=== PATIENT | female | born 1990 | race African-American/Black ===

== ENCOUNTER 2018-08-18 13:16 | Inpatient (IN) ==
[2018-08-18] MEDS ORDERED: Oxytocin 30 Units/500ml Premix 30 UNITS/500 ML BAG IV.SIG ONE (14:31)
[2018-08-18] MEDS ORDERED: Sod Chloride 0.9% Inj 1,000 ML IV.CONT PRN (14:31)
[2018-08-18] MEDS ORDERED: fentaNYL Citrate Inj 100 MCG/2 ML Ampul IV.PUSH PRN ×2 (14:31)
[2018-08-18] MEDS ORDERED: Sodium Chlor 0.9% Inj 500 ML IV.SIG PRN (14:31)
[2018-08-18] MEDS ORDERED: Naloxone Inj 0.4 MG/ML Vial IV.PUSH PRN (14:31)
--- NOTE | 2018-08-18 14:43 | P.HPOB ---
History of Present Illness Service: OBstetrics Primary Care Physician: No Primary Care Physician Chief Complaint: 37 week IUP with mild BP elevations, NATALEE < 5 History of Present Illness: 28 yo sbf with LMP unclear and EDC 11/12 by 34+ week sonogram seen today for second visit. Late entrant originally through the care home and now at [facility]. Drugs of choice were cocaine and THC. Used through mid June when incarcerated. In abstinence now. Feels well and wants to remain abstinent. No severe headaches, nausea, vomiting, blurred vision or RUQT. BP initially 140 /90 at 34 weeks and 130/82 today. 1+ protein in urine. Sonogram today shows NATALEE 4.8 . Grade 3 placenta. Cervix long/closed/posterior and soft. GFM no leaking, bleeding or regular UCs. Weeks Gestation:: 37 Para: 1 : 2 - Inpatient Certification I certify that the inpatient services were ordered in accordance with Medicare regulations governing the order. This includes certification that hospital inpatient services are reasonable and necessary and in the case of services not specified as inpatient-only under 42 CFR 419.22(n), that they are appropriately provided as inpatient services in accordance to with the 2-midnight benchmark under 43 CFR 412.3(e) Estimated Total Length of Stay (Days): 3 Plans for Post Hospital Care: Other Review of Systems All other systems reviewed negative except as stated in HPI PMFSH - Tobacco History Second Hand Smoke Exposure: Yes Tobacco Use In Past 30 Days: No Medications and Allergies Allergies Allergy/AdvReac Type Severity Reaction Status Date / Time No Known Drug Allergies Allergy Unknown none Verified 08/18/18 14:20 Home Medications Medication Instructions Recorded Confirmed Type vit,[id number] 1 tab PO DAILY 08/18/18 08/18/18 History [Prenatabs FA] Exam Vital signs: Vital Signs 08/18/18 14:05 Temperature 98.6 F Intake & Output 08/17/18 08/18/18 08/18/18 18:59 06:59 18:59 Weight 69.4 kg - Constitutional no acute distress - Routine HEENT Exam Head: Present: normocephalic Eye: Present: PERRL ENT: Present: mucous membranes moist - Routine Neck Exam Present: supple - Routine Respiratory Exam Present: CTA bilaterally - Routine Cardiovascular Exam Present: RRR - Routine Abdominal Exam Present: soft - Routine Extremities Exam Present: pulses intact - Routine Skin Exam Present: intact - Routine Neurological Exam Present: alert, oriented X3 Caprini VTE Risk Assessment Caprini VTE Risk Assessment: No/Low Risk (score <= 1) Caprini Risk Assessment Model: Point Value = 1 Point Value = 2 Point Value = 3 Point Value = 5 Age 41-60 Minor surgery BMI > 25 kg/m2 Swollen legs Varicose veins or History of unexplained or recurrent spontaneous Oral contraceptives or hormone replacement Sepsis (< 1 month) Serious lung disease, including pneumonia (< 1 month) Abnormal pulmonary function Acute myocardial infarction Congestive heart failure (< 1 month) History of inflammatory bowel disease Medical patient at bed rest Age 61-74 Arthroscopic surgery Major open surgery (> 45 min) Laparoscopic surgery (> 45 min) Malignancy Confined to bed (> 72 hours) Immobilizing plaster cast Central venous access Age >= 75 History of VTE Family history of VTE Factor V Leiden Prothrombin [id number] Lupus anticoagulant Anticardiolipin antibodies Elevated serum homocysteine Heparin-induced thrombocytopenia Other congenital or acquired thrombophilia Stroke (< 1 month) Elective arthroplasty Hip, pelvis, or leg fracture Acute spinal cord injury (< 1 month) Prophylaxis Regimen: Total Risk Factor Score Risk Level Prophylaxis Regimen 0-1 Low Early ambulation 2 Moderate Order ONE of the following: *Sequential Compression Device (SCD) *Heparin 5000 units SQ BID 3-4 Higher Order ONE of the following medications: *Heparin 5000 units SQ TID *Enoxaparin/Lovenox 40 mg SQ daily (WT < 150 kg, CrCl > 30 mL/min) *Enoxaparin/Lovenox 30 mg SQ daily (WT < 150 kg, CrCl > 10-29 mL/min) *Enoxaparin/Lovenox 30 mg SQ BID (WT < 150 kg, CrCl > 30 mL/min) AND/OR *Sequential Compression Device (SCD) 5 or more Highest Order ONE of the following medications: *Heparin 5000 units SQ TID (Preferred with Epidurals) *Enoxaparin/Lovenox 40 mg SQ daily (WT < 150 kg, CrCl > 30 mL/min) *Enoxaparin/Lovenox 30 mg SQ daily (WT < 150 kg, CrCl > 10-29 mL/min) *Enoxaparin/Lovenox 30 mg SQ BID (WT < 150 kg, CrCl > 30 mL/min) AND *Sequential Compression Device (SCD) Assessment and Plan - Diagnosis (1) Late care Code(s): O09.30 - Supervision of with insufficient care, unspecified trimester Status: Acute (2) 37 weeks gestation of Code(s): Z3A.37 - 37 weeks gestation of Status: Acute (3) induced hypertension Code(s): O13.9 - Gestational [-induced] hypertension without significant proteinuria, unspecified trimester Status: Acute (4) Oligohydramnios Code(s): O41.00X0 - Oligohydramnios, unspecified trimester, not applicable or unspecified Status: Acute (5) Polysubstance (excluding opioids) dependence, daily use Code(s): F19.20 - Other psychoactive substance dependence, uncomplicated Status: Acute - Plan To [place] for cervical ripening with cervidil and anticipated delivery mckenzie score 3 but multip anticipate
[2018-08-18] MEDS ORDERED: Citric Acid/Sodium Citrate Liq 30 ML UDC PO SCH (14:45)
[2018-08-18 15:18] LABS: Baso % (Auto) 0.3 % (0.0-2.0); Eos % (Auto) 0.3 % (0.0-4.0); Hematocrit 32.1 % (35.0-46.0); Hemoglobin 10.6 gm/dL (11.6-15.3); Lymph # (Auto) 1.7 th/mm3 (1.0-4.8); Lymph % (Auto) 15.4 % (9.0-44.0); Mean Corpuscular Hemoglobin 24.7 pg (27.0-34.0); Mean Corpuscular Volume 74.7 fL (80.0-100.0); Mono # (Auto) 1.1 th/mm3 (0.0-0.9); Mono % (Auto) 10.1 % (0.0-8.0); Neut # (Auto) 8.4 th/mm3 (1.8-7.7); Neut % (Auto) 73.9 % (16.0-70.0); Platelet Count 131 th/mm3 (150-450); Red Blood Count 4.29 mil/mm3 (4.00-5.30); Red Cell Distribution Width 16.2 % (11.6-17.2); White Blood Count 11.3 th/mm3 (4.0-11.0)
[2018-08-18 15:24] LABS: Bacteria,Urine Moderate /hpf; Bilirubin,Urine Negative (Negative); Clarity,Urine Cloudy (Clear); Color,Urine Yellow (Yellw/Straw); Glucose,Urine (UA) Negative (Negative); Leukocyte Esterase,Urine Large (Negative); Nitrite,Urine Negative (Negative); Specific Gravity,Urine 1.009 (1.002-1.035); Squamous Epithelial Cell,Urine 22 /hpf (0-5)
[2018-08-18 15:25] LABS: Amphetamine Urine With Conf Neg (Neg); Benzodiazepine Urine With Conf Neg (Neg)
[2018-08-18] MEDS ORDERED: Oxytocin 30 Units/500ml Premix 30 UNITS/500 ML BAG IV.SIG PRN (18:34)
--- NOTE | 2018-08-18 18:34 | P.OBLABOR ---
Subjective Interval history: Eating dinner with BERNABE Dennis noting some mild contractions with cervidil in place no leaking or bleeding Objective Vital Signs: Vital Signs - 8 hr 08/18/18 14:05 08/18/18 14:15 Temperature 98.6 F Pulse Rate 90 Respiratory Rate 16 Blood Pressure 127/86 Objective: category one strip 1 c, /20%/soft and posterior Patient Started Active Labor: No Medical Induction of Labor: Yes Medical Induction Start Date: 08/18/18 Artificial Rupture of Membrane: No Assessment and Plan - Diagnosis (1) Late care Code(s): O09.30 - Supervision of with insufficient care, unspecified trimester Status: Acute (2) 37 weeks gestation of Code(s): Z3A.37 - 37 weeks gestation of Status: Acute (3) induced hypertension Code(s): O13.9 - Gestational [-induced] hypertension without significant proteinuria, unspecified trimester Status: Acute (4) Oligohydramnios Code(s): O41.00X0 - Oligohydramnios, unspecified trimester, not applicable or unspecified Status: Acute (5) Polysubstance (excluding opioids) dependence, daily use Code(s): F19.20 - Other psychoactive substance dependence, uncomplicated Status: Acute - Plan To [place] for cervical ripening with cervidil and anticipated delivery mckenzie score 3 but multip anticipate 08/18/18 6:30 pm doing well will start pitocin at 6 am arom if possible at 8:00 am anticipate
[2018-08-18 21:33] LABS: Hepatitis A IgM Antibody Nonreactive (Nonreactive); Hepatitits B Surface Antigen Nonreactive (Nonreactive)
[2018-08-19] MEDS ORDERED: Penicillin G Potassium Inj 5,000,000 UNIT in Sodium Chloride 0.9% Inj 100 ML IV.SIG SCH ×4 (06:00)
[2018-08-19] MEDS ORDERED: Penicillin G Potassium Inj 2,500,000 UNIT in Sodium Chlor 0.9% Inj 100 ML IV.SIG SCH (06:00)
[2018-08-19] MEDS: Oxytocin 30 Units/500ml Premix 30 UNITS/500 ML BAG IV.SIG PRN (07:26)
[2018-08-19] MEDS: Penicillin G Potassium Inj 2,500,000 UNIT in Sodium Chlor 0.9% Inj 100 ML IV.SIG SCH ×4 (09:52→23:01)
--- NOTE | 2018-08-19 10:32 | P.OBLABOR ---
Subjective Interval history: Quiet night mild contractions good movement no leaking or bleeding yet Objective Vital Signs: Vital Signs - 8 hr 08/19/18 06:30 08/19/18 06:56 08/19/18 07:24 Temperature 98.5 F 98.8 F Pulse Rate 84 73 81 Respiratory Rate 18 Blood Pressure 122/66 112/70 143/73 H 08/19/18 07:30 08/19/18 08:32 08/19/18 09:01 Temperature Pulse Rate 111 H 100 H Respiratory Rate 16 Blood Pressure 142/70 H 135/94 H 08/19/18 09:45 08/19/18 10:21 Temperature Pulse Rate 85 86 Respiratory Rate 16 18 Blood Pressure 127/76 133/70 Objective: 3 cm/60%/-2 arom scant to no flluid strip category one on 4 mu pitocin Weeks Gestation: 37 Patient Started Active Labor: No Medical Induction of Labor: Yes Medical Induction Start Date: 08/19/18 Artificial Rupture of Membrane: Yes Artificial ROM Date: 08/19/18 Artificial ROM Time: 10:30 Assessment and Plan - Diagnosis (1) Late care Code(s): O09.30 - Supervision of with insufficient care, unspecified trimester Status: Acute (2) 37 weeks gestation of Code(s): Z3A.37 - 37 weeks gestation of Status: Acute Plan: Anticipate epidural as needed (3) induced hypertension Code(s): O13.9 - Gestational [-induced] hypertension without significant proteinuria, unspecified trimester Status: Acute (4) Oligohydramnios Code(s): O41.00X0 - Oligohydramnios, unspecified trimester, not applicable or unspecified Status: Acute (5) Polysubstance (excluding opioids) dependence, daily use Code(s): F19.20 - Other psychoactive substance dependence, uncomplicated Status: Acute - Plan To [place] for cervical ripening with cervidil and anticipated delivery mckenzie score 3 but multip anticipate 08/18/18 6:30 pm doing well will start pitocin at 6 am arom if possible at 8:00 am anticipate
[2018-08-19] MEDS: Prenatal Vit/Ca/Iron/Folic Acid Tablet PO SCH (14:50)
--- NOTE | 2018-08-19 17:53 | P.OBLABOR ---
Subjective Interval history: not feeling any contractions despite pitocin at 17 mU/min and use of birthing ball. GFM noted no leaking despite aggressive attempt to AROM this am. Mild bloody show only Objective Vital Signs: Vital Signs - 8 hr 08/19/18 10:21 08/19/18 10:30 08/19/18 10:50 Temperature 98.6 F Pulse Rate 86 91 H Respiratory Rate 18 Blood Pressure 133/70 121/71 08/19/18 11:21 08/19/18 12:00 08/19/18 13:55 Temperature 98.6 F 98.7 F Pulse Rate 95 H 89 97 H Respiratory Rate 18 14 Blood Pressure 120/63 109/58 L 126/77 08/19/18 13:58 08/19/18 14:35 08/19/18 15:07 Temperature Pulse Rate 103 H 95 H Respiratory Rate 16 16 Blood Pressure 140/74 134/79 08/19/18 15:28 08/19/18 15:52 08/19/18 16:00 Temperature 98.7 F 98.7 F Pulse Rate 96 H Respiratory Rate 16 Blood Pressure 119/71 08/19/18 16:22 08/19/18 16:52 Temperature Pulse Rate 95 H 93 H Respiratory Rate Blood Pressure 116/81 122/86 Objective: 5+/60% and not well applied. Anterior and high strip category one Patient Started Active Labor: No Medical Induction of Labor: Yes Artificial Rupture of Membrane: Yes Assessment and Plan - Diagnosis (1) Late care Code(s): O09.30 - Supervision of with insufficient care, unspecified trimester Status: Acute (2) 37 weeks gestation of Code(s): Z3A.37 - 37 weeks gestation of Status: Acute Plan: Anticipate epidural as needed (3) induced hypertension Code(s): O13.9 - Gestational [-induced] hypertension without significant proteinuria, unspecified trimester Status: Acute (4) Oligohydramnios Code(s): O41.00X0 - Oligohydramnios, unspecified trimester, not applicable or unspecified Status: Acute (5) Polysubstance (excluding opioids) dependence, daily use Code(s): F19.20 - Other psychoactive substance dependence, uncomplicated Status: Acute - Plan To [place] for cervical ripening with cervidil and anticipated delivery mckenzie score 3 but multip anticipate 08/18/18 6:30 pm doing well will start pitocin at 6 am arom if possible at 8:00 am anticipate 08/18/18 attempt to AROM this morning did not reveal gush of any fluid (oligohydramnios in office) only mild change today on pitocin attempt to again use amnio hook to get fluid did not show any fluid Will stop pitocin. Allow dinner, shower and walk around the resume monitoring and pitocin. FSE when epidural anticipate
[2018-08-19] MEDS ORDERED: Oxytocin 30 Units/500ml Premix 30 UNITS/500 ML BAG IV.SIG PRN (20:25)
[2018-08-20] MEDS: Penicillin G Potassium Inj 2,500,000 UNIT in Sodium Chlor 0.9% Inj 100 ML IV.SIG SCH ×5 (03:42→22:27)
--- NOTE | 2018-08-20 08:17 | P.OBLABOR ---
Subjective Interval history: quiet night but noting leaking being very patient and pleasant gfm no real contractions Objective Vital Signs: Vital Signs - 8 hr 08/20/18 01:20 08/20/18 03:13 08/20/18 06:06 Temperature 97.3 F L 98.9 F 97.8 F Pulse Rate 81 76 72 Respiratory Rate 18 18 16 Blood Pressure 113/60 109/74 130/74 08/20/18 07:28 08/20/18 07:30 Temperature 98.0 F Pulse Rate 74 Respiratory Rate 18 Blood Pressure 129/74 Objective: Pelvic Exam: Category one strip minimal UCs cervix now rotated anterior and thinner but still 50% 4-5 cm still feel tight amniotic sac efw 7 pounds proven Patient Started Active Labor: No Medical Induction of Labor: Yes Artificial Rupture of Membrane: Yes Assessment and Plan - Diagnosis (1) Late care Code(s): O09.30 - Supervision of with insufficient care, unspecified trimester Status: Acute (2) 37 weeks gestation of Code(s): Z3A.37 - 37 weeks gestation of Status: Acute Plan: Anticipate epidural as needed (3) induced hypertension Code(s): O13.9 - Gestational [-induced] hypertension without significant proteinuria, unspecified trimester Status: Acute (4) Oligohydramnios Code(s): O41.00X0 - Oligohydramnios, unspecified trimester, not applicable or unspecified Status: Acute (5) Polysubstance (excluding opioids) dependence, daily use Code(s): F19.20 - Other psychoactive substance dependence, uncomplicated Status: Acute - Plan To [place] for cervical ripening with cervidil and anticipated delivery mckenzie score 3 but multip anticipate 08/18/18 6:30 pm doing well will start pitocin at 6 am arom if possible at 8:00 am anticipate 08/18/18 attempt to AROM this morning did not reveal gush of any fluid (oligohydramnios in office) only mild change today on pitocin attempt to again use amnio hook to get fluid did not show any fluid Will stop pitocin. Allow dinner, shower and walk around the resume monitoring and pitocin. FSE when epidural anticipate 08/20/18 anticipate delivery today
--- NOTE | 2018-08-20 10:35 | P.OBLABOR ---
Subjective Interval history: still too comfortable despite 12 mu/min pitocin gfm notes leakage Objective Vital Signs: Vital Signs - 8 hr 08/20/18 03:13 08/20/18 06:06 08/20/18 07:28 Temperature 98.9 F 97.8 F 98.0 F Pulse Rate 76 72 74 Respiratory Rate 18 16 Blood Pressure 109/74 130/74 129/74 08/20/18 07:30 08/20/18 09:00 08/20/18 09:58 Temperature 98.4 F Pulse Rate 90 Respiratory Rate 18 20 18 Blood Pressure 119/68 08/20/18 09:59 Temperature Pulse Rate 88 Respiratory Rate Blood Pressure 119/61 Objective: Pelvic Exam: 5 cm/50/-2 more anterior strip reactive not adequate labor yet Assessment and Plan - Diagnosis (1) Late care Code(s): O09.30 - Supervision of with insufficient care, unspecified trimester Status: Acute (2) 37 weeks gestation of Code(s): Z3A.37 - 37 weeks gestation of Status: Acute Plan: Anticipate epidural as needed (3) induced hypertension Code(s): O13.9 - Gestational [-induced] hypertension without significant proteinuria, unspecified trimester Status: Acute (4) Oligohydramnios Code(s): O41.00X0 - Oligohydramnios, unspecified trimester, not applicable or unspecified Status: Acute (5) Polysubstance (excluding opioids) dependence, daily use Code(s): F19.20 - Other psychoactive substance dependence, uncomplicated Status: Acute - Plan To [place] for cervical ripening with cervidil and anticipated delivery mckenzie score 3 but multip anticipate 08/18/18 6:30 pm doing well will start pitocin at 6 am arom if possible at 8:00 am anticipate 08/18/18 attempt to AROM this morning did not reveal gush of any fluid (oligohydramnios in office) only mild change today on pitocin attempt to again use amnio hook to get fluid did not show any fluid Will stop pitocin. Allow dinner, shower and walk around the resume monitoring and pitocin. FSE when epidural anticipate 08/20/18 anticipate delivery today
[2018-08-20] MEDS: Prenatal Vit/Ca/Iron/Folic Acid Tablet PO SCH (11:04)
--- NOTE | 2018-08-20 17:21 | P.OBLABOR ---
Subjective Interval history: no complaints no symptoms of infection timbo e contractions when sitting up Objective Vital Signs: Vital Signs - 8 hr 08/20/18 09:58 08/20/18 09:59 08/20/18 11:15 Temperature 98.7 F Pulse Rate 88 74 Respiratory Rate 18 20 Blood Pressure 119/61 131/77 08/20/18 12:42 08/20/18 14:00 08/20/18 15:00 Temperature 97.9 F 97.9 F 98.2 F Pulse Rate 87 71 77 Respiratory Rate 18 16 18 Blood Pressure 129/61 125/62 128/64 08/20/18 17:04 08/20/18 17:05 Temperature 97.7 F Pulse Rate 84 Respiratory Rate 20 Blood Pressure 126/74 Objective: 6 cm/-3/50% strip category one Patient Started Active Labor: Yes Medical Induction of Labor: Yes Artificial Rupture of Membrane: Yes Assessment and Plan - Diagnosis (1) Late care Code(s): O09.30 - Supervision of with insufficient care, unspecified trimester Status: Acute (2) 37 weeks gestation of Code(s): Z3A.37 - 37 weeks gestation of Status: Acute Plan: Anticipate epidural as needed (3) induced hypertension Code(s): O13.9 - Gestational [-induced] hypertension without significant proteinuria, unspecified trimester Status: Acute (4) Oligohydramnios Code(s): O41.00X0 - Oligohydramnios, unspecified trimester, not applicable or unspecified Status: Acute (5) Polysubstance (excluding opioids) dependence, daily use Code(s): F19.20 - Other psychoactive substance dependence, uncomplicated Status: Acute - Plan To [place] for cervical ripening with cervidil and anticipated delivery mckenzie score 3 but multip anticipate 08/18/18 6:30 pm doing well will start pitocin at 6 am arom if possible at 8:00 am anticipate 08/18/18 attempt to AROM this morning did not reveal gush of any fluid (oligohydramnios in office) only mild change today on pitocin attempt to again use amnio hook to get fluid did not show any fluid Will stop pitocin. Allow dinner, shower and walk around the resume monitoring and pitocin. FSE when epidural anticipate 08/20/18 anticipate delivery today 08/20/18 17:30 Not responding as expected to pitocin No evidence of maternal or stress will give cyotec x 1 and wait four hours and resume pit to see if "receptors need a rest "
[2018-08-20] MEDS ORDERED: fentaNYL 2MCG-Bupiv 0.125% Epi 150 ML EPIDURAL ONE (22:04)
[2018-08-20] MEDS ORDERED: Lidocaine 2%/Epinephrine 1:200,000 PF 10 ML SDV ONE (22:09)
[2018-08-21] MEDS: Penicillin G Potassium Inj 2,500,000 UNIT in Sodium Chlor 0.9% Inj 100 ML IV.SIG SCH ×3 (02:07→10:11)
[2018-08-21] MEDS ORDERED: PROPRANOLOL 1 MG/ML IV.PUSH ONE (04:06)
[2018-08-21] MEDS ORDERED: fentaNYL 2MCG-Bupiv 0.125% Epi 150 ML EPIDURAL ONE (07:59)
[2018-08-21] MEDS ORDERED: fentaNYL Citrate Inj 100 MCG/2 ML Ampul EPIDURAL ONE (08:24)
[2018-08-21] MEDS ORDERED: fentaNYL 2MCG-Bupiv 0.125% Epi 150 ML EPIDURAL PRN (09:00)
[2018-08-21] MEDS: Oxytocin 30 Units/500ml Premix 30 UNITS/500 ML BAG IV.SIG PRN (09:57)
[2018-08-21] MEDS ORDERED: Methylergonovine Inj 0.2 MG/ML Ampul ONE (12:03)
[2018-08-21] MEDS ORDERED: miSOPROStol 200 MCG Tablet ONE (12:03)
[2018-08-21] MEDS ORDERED: Naloxone Inj 0.4 MG/ML Vial IV.PUSH PRN (12:07)
[2018-08-21] MEDS ORDERED: Acetaminophen 325 MG Tablet PO PRN (12:07)
[2018-08-21] MEDS ORDERED: Bisacodyl 10 MG Supp RECTAL PRN (12:07)
[2018-08-21] MEDS ORDERED: Witch Hazel 50%/Glyderin 12.5% 40 Pad Jar RECTAL PRN (12:07)
[2018-08-21] MEDS ORDERED: Oxytocin 30 Units/500ml Premix 30 UNITS/500 ML BAG IV.CONT PRN (12:07)
[2018-08-21] MEDS ORDERED: Benzocaine 20% Top Spray 60 ML Can TOPICAL PRN (12:07)
[2018-08-21] MEDS ORDERED: Zolpidem Tartrate 5 MG Tablet PO PRN (12:07)
--- NOTE | 2018-08-21 12:07 | P.OBDELI ---
Weeks Gestation: 37 Patient Started Active Labor: Yes Medical Induction of Labor: Yes Artificial Rupture of Membrane: Yes Anesthesia: Epidural Episiotomy: none Vaginal Delivery: Normal Presentation: Occiput anterior Nuchal Cord: x1 Delayed Cord Clamping (45 sec): Yes Placenta: Spontaneous delivery, Intact, 3 vessel cord Laceration: None Estimated blood loss (mL): 200 Infant: Male Infant Male A Infant Delivery Date: 08/21/18 Infant Delivery Time: 12:06 score (1 min): 7 score (5 min): 9 (watching for PPH due to prolonged induction and days of pitocin No excessive bleeding at this time)
[2018-08-21] MEDS: Prenatal Vit/Ca/Iron/Folic Acid Tablet PO SCH (15:02)
[2018-08-21] MEDS ORDERED: Diphtheria/Tetanus/Pertussis Vaccine Inj 0.5 ML Syringe IM ONE (16:00)
[2018-08-21] MEDS ORDERED: Measles/Mumps/Rubella Vaccine Inj 0.5 ML Vial SQ ONE (16:00)
[2018-08-21] MEDS: Senna/Docusate Sodium 8.6/50 MG Tablet PO SCH (22:39)
[2018-08-22 06:47] VITALS: TEMP 98.3
[2018-08-22] MEDS: Senna/Docusate Sodium 8.6/50 MG Tablet PO SCH ×2 (09:01→21:33)
[2018-08-22] MEDS: Prenatal Vit/Ca/Iron/Folic Acid Tablet PO SCH (09:01)
--- NOTE | 2018-08-22 15:57 | P.PNOB ---
Subjective Post day: 1 Interval history: Doing well Baby is doing well Pain is controlled Bleeding is good Tolerating diet. Objective Vital Signs/I&O: Vital Signs 08/21/18 20:40 08/22/18 06:46 Temperature 98.1 F 98.3 F Pulse Rate 75 73 Respiratory Rate 18 18 Blood Pressure 122/61 140/82 Intake & Output 08/21/18 08/22/18 08/22/18 18:59 06:59 18:59 Intake Total 500 / 500 Balance 500 / 500 Intake: IV 500 / 500 Pitocin 30 Units/NS 500 ml 500 / 500 Premix 30 units In 500 ml @ 1 MILLIUNIT/MIN 1 mls/hr IV.SIG TITRATE PRN Rx#:[id number] Result Diagrams: 08/18/18 14:38 Objective Remarks: GENERAL: Well-nourished, well-developed patient. CARDIOVASCULAR: Regular rate and rhythm without murmurs, gallops, or rubs. RESPIRATORY: Breath sounds equal bilaterally. No accessory muscle use. ABDOMEN/GI: Abdomen soft, non-tender. Fundus: Firm, non-tender at umbilicus. GENITOURINARY: Light to moderate bleeding. EXTREMITIES: No cyanosis or edema, non-tender, without signs of DVT. Assessment and Plan - Plan PPD #1 Anemia will start fe once her bowels are moving well. Doing well. Plan d/c home tomorrow.
[2018-08-23 08:08] VITALS: BP 126/78; PULSE 86; RESP 16
[2018-08-23] MEDS: Senna/Docusate Sodium 8.6/50 MG Tablet PO SCH (08:41)
[2018-08-23] MEDS: Prenatal Vit/Ca/Iron/Folic Acid Tablet PO SCH (08:41)
--- NOTE | 2018-08-23 14:35 | P.OBGPN ---
Doing well Ready to go home Pain and bleeding are ok Will call office for an appt soon. Call us if any problems.
== END 2018-08-23 16:13 | disposition home or self-care (01) ==
LOC: H2E 13:16 → H1EA 08-21 14:31
PROVIDERS: ADMIT Obstetrics & Gynecology; ATTEND Obstetrics & Gynecology